=== PATIENT | male | born 1980 | race Caucasian/White ===

== ENCOUNTER → 2022-03-21 14:44 | Outpatient (CLI) | payer OTHER, SELFPAY ==
--- NOTE | 2022-03-21 | DI.MRI.S_ITS ---
PROCEDURE: MR LUMBAR SPINE WO CON INDICATIONS: Anesthesia of skin TECHNIQUE: Noncontrast sagittal T1 spin echo and T2 fast echo, sagittal STIR, and T2 fast spin echo through the lumbar spine. In cases with scoliosis, additional coronal T2 fast spin echo may be performed. COMPARISON: None. FINDINGS: Image quality: Excellent. Alignment and Curvature: Normal lumbar vertebral body height and alignment. Bone Marrow: No suspicious focal marrow signal abnormality or bone marrow edema. Spinal Cord: Conus medullaris terminates at the L1 level. Visualized cord demonstrates normal signal and size. Regional Soft Tissues: No paravertebral masses. T12-L1: Normal appearance. L1-L2: Normal appearance. L2-L3: Normal appearance. L3-L4: Disc desiccation and disc height loss. Diffuse disc bulge and a superimposed broad-based posterior disc protrusion which flattens the ventral thecal sac. Foraminal components of the disc bulge produce mild neural foraminal narrowing bilaterally. L4-L5: Normal appearance. L5-S1: Normal appearance. IMPRESSION: No evidence of focal nerve root impingement. Mild neural foraminal narrowing bilaterally at L3-L4. No significant degenerative changes otherwise. Dictated by: Kartik Perez M.D. on 03/21/2022 at 16:52 Approved by: Kartik Perez M.D. on 03/21/2022 at 16:53
== END ==
PROVIDERS: PCP Physician Assistant; Referring Provider Physician Assistant; Visit Provider Physician Assistant
DX: M48.061 Spinal stenosis, lumbar region without neurogenic claudication (principal); R20.0 Anesthesia of skin
CPT/HCPCS: 72148